=== PATIENT | female | born 1985 | race African-American/Black ===

== ENCOUNTER 2016-09-21 15:30 | Inpatient (IN) | payer OTHER ==
[2016-09-21 16:18] VITALS: BMI 27.4
[2016-09-21] MEDS ORDERED: DINOPROSTONE 10 MG VAGINAL SUPPOSITORY VG ONE (16:21)
[2016-09-21] MEDS ORDERED: BUTORPHANOL TARTRATE 1 MG/ML VIAL IVPUSH PRN (16:22)
[2016-09-21] MEDS ORDERED: PROMETHAZINE HCL 25 MG/1 ML VIAL IVPUSH ONE (16:22)
[2016-09-21] MEDS ORDERED: DEXTROSE 5%-LACTATED RINGERS 1,000 ML IV SCH (16:30)
--- NOTE | 2016-09-21 16:43 | HP ---
Past Medical History - Primary Care Physician PCP:: Yoseph Govea - Admission Chief Complaint: 41 weeks, for cervidil induction History of Present Illness: 31 yo f 6 [id number]. edc by anna 09/13/16 41.1 weeks, admitted for cervidil induction , no pain, no rom, cervidil risks degaussed, cx 1 cm 50 vx -2 mi, fhr cat1 History Source: Patient Limitations to Obtaining History: No Limitations - Past Medical History ...: 6 ...Para: 4 ...Term: 4 ...Induced : 1 ...EDC by Anna: 09/13/16 - Past Surgical History Hx Myomectomy: No Hx Transabdominal Cerclage: No - Smoking History Smoking history: Current every day smoker Have you smoked in the past 12 months: Yes Aproximately how many cigarettes per day: 6 - Alcohol/Substance Use Hx Alcohol Use: No History of Substance Use: reports: None - Social History Usual Living Arrangement: Yes: With Spouse History of Recent Travel: No Home Medications - Allergies Allergies/Adverse Reactions: Allergies Allergy/AdvReac Type Severity Reaction Status Date / Time No Known Allergies Allergy Verified 09/21/16 16:21 - Home Medications Home Medications: Ambulatory Orders Acetaminophen [Tylenol .Regular Strength -] 650 mg PO Q3H PRN #1 tablet Ibuprofen [Motrin -] 600 mg PO Q4H PRN #1 tablet 02/23/14 Tablet 1 tablet PO DAILY 09/21/16 Review of Systems - Review of Systems Constitutional: reports: No Symptoms Eyes: reports: No Symptoms HENT: reports: No Symptoms Neck: reports: No Symptoms Cardiovascular: reports: No Symptoms Respiratory: reports: No Symptoms Gastrointestinal: reports: No Symptoms Genitourinary: reports: No Symptoms Breasts: reports: No Symptoms Reported Musculoskeletal: reports: No Symptoms Integumentary: reports: No Symptoms Neurological: reports: No Symptoms Endocrine: reports: No Symptoms Hematology/Lymphatic: reports: No Symptoms Psychiatric: reports: No Symptoms Physical Exam - Maternity Vital Signs: Vital Signs Temperature 98.2 F 09/21/16 16:05 Pulse Rate 82 09/21/16 16:05 Respiratory Rate 18 09/21/16 16:05 Blood Pressure 124/74 09/21/16 16:05 O2 Sat by Pulse Oximetry (%) Constitutional: Yes: Well Nourished, No Distress, Calm Eyes: Yes: WNL, Conjunctiva Clear, EOM Intact HENT: Yes: WNL, Atraumatic, Normocephalic Neck: Yes: WNL, Supple, Trachea Midline Cardiovascular: Yes: WNL, Regular Rate and Rhythm Breast(s): Yes: WNL - Abdominal Exam/OB Fundal Height: 40 Number of Fetuses: Single Presentation: Vertex Intensity: Unaware Heart Rate Location: [facility] Category: I Accelerations: Uniform Decelerations: None - Vaginal Exam/OB Vaginal Bleediing: No Speculum Exam: No Dilatation (cm): 1 cm Amniotic Membrane Status: Intact Presentation: Vertex/Position Station: -2 - Physical Exam Musculoskeletal: Yes: WNL Edema: Yes Edema: LLE: Trace, RLE: Trace Deep Tendon Reflex Grade: Normal +2 Psychiatric: Yes: WNL Hemorrhage Risk Assessment - Risk Factors Medium Risk Factors: Yes: Greater than 4 previous births Risk Score: 1 Risk Level: Medium Risk Problem List - Problems (1) Post term at 41 weeks gestation Code(s): O48.0 - POST-TERM Z3A.41 - 41 WEEKS GESTATION OF Assessment/Plan plan admit for cervidil induction , rba discussed
[2016-09-21] MEDS ORDERED: ACETAMINOPHEN 325 MG TABLET (FP) PO PRN (16:46)
[2016-09-21 17:48] LABS: BASOPHIL 0.3 % (0-2.0); EOSINOPHIL 1.9 % (0-4.5); MCH 28.6 pg (25.7-33.7); MCHC 33.3 g/dl (32.0-36.0); MEAN CELL VOLUME 85.8 fl (80-96); MEAN PLT VOLUME 8.6 fl (7.5-11.1); NEUTROPHILS 63.1 % (42.8-82.8); PLATELET COUNT 268 K/MM3 (134-434); RDW 14.6 % (11.6-15.6); WHITE BLOOD COUNT 9.1 K/mm3 (4.0-10.0)
[2016-09-21 18:11] LABS: CALCIUM 8.8 mg/dL (8.5-10.1); CREATININE 0.4 mg/dL (0.55-1.02)
[2016-09-21 18:21] LABS: INR 1.02 (0.82-1.09); PROTHROMBIN TIME (PATIENT) 11.2 SEC (9.98-11.88)
[2016-09-21 18:24] LABS: ACTIVATED PTT 30.9 SECONDS (26.9-34.4)
--- NOTE | 2016-09-21 21:59 | PN ---
Progress Note (short form) - Note Progress Note: cv 3 cm, 70, vx -2 mi, fhr cat1, irregular contraction Problem List - Problems (1) Post term at 41 weeks gestation Code(s): O48.0 - POST-TERM Z3A.41 - 41 WEEKS GESTATION OF
[2016-09-22] MEDS ORDERED: D5W-LR W/ 20 UNITS OXYTOCIN 1,000 ML IV ONE (03:05)
[2016-09-22] MEDS ORDERED: BISACODYL 10 MG SUPP.RECT RC PRN (03:08)
[2016-09-22] MEDS ORDERED: METHYLERGONOVINE MALEATE 0.2 MG/1 ML AMP IM PRN (03:08)
[2016-09-22] MEDS ORDERED: BENZOCAINE 20% 57 GM BOTTLE TP PRN (03:08)
[2016-09-22] MEDS ORDERED: oxyCODONE HCL 5 MG TABLET PO PRN (03:08)
[2016-09-22] MEDS ORDERED: ACETAMINOPHEN 325 MG TABLET (FP) PO PRN (03:08)
[2016-09-22] MEDS ORDERED: WITCH HAZEL 50% (TUCKS) 40 PAD/JAR PAD TP PRN (03:08)
[2016-09-22] MEDS ORDERED: BENZOCAINE 28 GM HEMORRHOIDAL OINTMENT TP PRN (03:08)
[2016-09-22] MEDS ORDERED: D5W-LR W/ 20 UNITS OXYTOCIN 1,000 ML IV SCH (03:15)
[2016-09-22 03:30] LABS: ARTERIAL BLOOD GAS BASE EXCESS -2.3 meq/l (-2-2); ARTERIAL BLOOD GAS HCO3 24.5 meq/L (22-26); ARTERIAL BLOOD GAS pH 7.29 (7.35-7.45)
[2016-09-22 03:33] LABS: VENOUS BLOOD GAS HCO3 25.5 meq/L (19-25)
[2016-09-22 03:34] LABS: ART PUNCT SITE OTHER; ARTERIAL BLD GAS O2 SATURATION 64.7 % (90-98.9); LPM/O2% 21%; PT. ON O2? no; TYPE OF O2 room air; VENOUS PH 7.22 (7.32-7.42)
[2016-09-22 03:35] LABS: ARTERIAL BLOOD GAS PO2 31.1 mmHg (80-100)
[2016-09-22] MEDS: FERROUS SO4 325 MG TABLET (FP) PO SCH ×2 (09:17→21:24)
[2016-09-22] MEDS: PRENATAL VITAMINS W/ FOLIC ACID TABLET (FP) PO SCH (09:17)
[2016-09-23 07:12] LABS: BASOPHIL 0.4 % (0-2.0); MCH 28.5 pg (25.7-33.7); MCHC 33.1 g/dl (32.0-36.0); MEAN CELL VOLUME 86.1 fl (80-96); MEAN PLT VOLUME 8.4 fl (7.5-11.1); NEUTROPHILS 57.2 % (42.8-82.8); PLATELET COUNT 219 K/MM3 (134-434); RDW 14.7 % (11.6-15.6); WHITE BLOOD COUNT 10.6 K/mm3 (4.0-10.0)
[2016-09-23] MEDS: FERROUS SO4 325 MG TABLET (FP) PO SCH ×2 (10:11→21:42)
[2016-09-23] MEDS: IBUPROFEN 600 MG TABLET (FP) PO PRN ×2 (10:11→21:43)
[2016-09-23] MEDS: PRENATAL VITAMINS W/ FOLIC ACID TABLET (FP) PO SCH (10:11)
--- NOTE | 2016-09-23 10:26 | PN ---
Post Progress Note - Subjective Subjective: asymptomatic Post Day: 1 Type of Delivery: Vital Signs: Vital Signs Temperature 97.7 F 09/23/16 01:56 Pulse Rate 91 H 09/23/16 01:56 Respiratory Rate 18 09/23/16 01:56 Blood Pressure 112/59 09/23/16 01:56 O2 Sat by Pulse Oximetry (%) 100 09/22/16 04:00 Breast Exam: Yes: Soft. No: Engorged Uterus: Yes: Fundus Firm, Fundus below umbilicus Lochia: Yes: Rubra Lochia, amount: Moderate Extremities: Yes: Calves non-tender Perineum: Yes: Intact Activity: Ambulating - Labs Labs: CBC WBC 10.6 K/mm3 (4.0-10.0) H 09/23/16 05:20 RBC 3.84 M/mm3 (3.60-5.2) 09/23/16 05:20 Hgb 10.9 GM/dL (10.7-15.3) 09/23/16 05:20 Hct 33.0 % (32.4-45.2) 09/23/16 05:20 MCV 86.1 fl (80-96) 09/23/16 05:20 MCHC 33.1 g/dl (32.0-36.0) 09/23/16 05:20 RDW 14.7 % (11.6-15.6) 09/23/16 05:20 Plt Count 219 K/MM3 (134-434) 09/23/16 05:20 MPV 8.4 fl (7.5-11.1) 09/23/16 05:20 Neutrophils % 57.2 % (42.8-82.8) 09/23/16 05:20 Lymphocytes % 33.5 % (8-40) D 09/23/16 05:20 Monocytes % 6.9 % (3.8-10.2) 09/23/16 05:20 Eosinophils % 2.0 % (0-4.5) 09/23/16 05:20 Basophils % 0.4 % (0-2.0) 09/23/16 05:20 Assessment/Plan stable. plan discharge tomorrow.
[2016-09-23 20:09] VITALS: PULSE 89
[2016-09-23] MEDS ORDERED: SENNOSIDES/DOCUSATE COMBO (SENNA PLUS) TABLET (UD) PO PRN (22:00)
[2016-09-24 08:53] VITALS: BP 136/76; TEMP 99.4
--- NOTE | 2016-09-24 09:29 | PN ---
Post Progress Note - Subjective Subjective: asymptomatic Post Day: 2 Type of Delivery: Vital Signs: Vital Signs Temperature 99.4 F 09/24/16 08:51 Pulse Rate 89 09/24/16 08:51 Respiratory Rate 20 09/24/16 08:51 Blood Pressure 136/76 09/24/16 08:51 O2 Sat by Pulse Oximetry (%) 100 09/22/16 04:00 Breast Exam: Yes: Soft, Other (not BF ). No: Engorged Uterus: Yes: Fundus Firm, Fundus below umbilicus, Non-tender Lochia: Yes: Rubra Lochia, amount: Moderate Extremities: Yes: Calves non-tender Perineum: Yes: Intact Activity: Ambulating - Labs Labs: CBC WBC 10.6 K/mm3 (4.0-10.0) H 09/23/16 05:20 RBC 3.84 M/mm3 (3.60-5.2) 09/23/16 05:20 Hgb 10.9 GM/dL (10.7-15.3) 09/23/16 05:20 Hct 33.0 % (32.4-45.2) 09/23/16 05:20 MCV 86.1 fl (80-96) 09/23/16 05:20 MCHC 33.1 g/dl (32.0-36.0) 09/23/16 05:20 RDW 14.7 % (11.6-15.6) 09/23/16 05:20 Plt Count 219 K/MM3 (134-434) 09/23/16 05:20 MPV 8.4 fl (7.5-11.1) 09/23/16 05:20 Neutrophils % 57.2 % (42.8-82.8) 09/23/16 05:20 Lymphocytes % 33.5 % (8-40) D 09/23/16 05:20 Monocytes % 6.9 % (3.8-10.2) 09/23/16 05:20 Eosinophils % 2.0 % (0-4.5) 09/23/16 05:20 Basophils % 0.4 % (0-2.0) 09/23/16 05:20 Assessment/Plan stable. discharge today
[2016-09-24] MEDS: FERROUS SO4 325 MG TABLET (FP) PO SCH (10:08)
[2016-09-24] MEDS: PRENATAL VITAMINS W/ FOLIC ACID TABLET (FP) PO SCH (10:08)
[2016-09-24] MEDS: IBUPROFEN 600 MG TABLET (FP) PO PRN (11:45)
--- NOTE | 2016-09-24 13:07 | DS ---
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 Vital Signs: Vital Signs Temperature 99.4 F 09/24/16 08:51 Pulse Rate 89 09/24/16 08:51 Respiratory Rate 20 09/24/16 08:51 Blood Pressure 136/76 09/24/16 08:51 O2 Sat by Pulse Oximetry (%) 100 09/22/16 04:00 Constitutional: Yes: Well Nourished, No Distress, Calm Eyes: Yes: WNL, Conjunctiva Clear, EOM Intact HENT: Yes: WNL, Atraumatic, Normocephalic Neck: Yes: WNL, Supple, Trachea Midline Cardiovascular: Yes: WNL, Regular Rate and Rhythm Respiratory: Yes: WNL, Regular, CTA Bilaterally Gastrointestinal: Yes: WNL ...Rectal Exam: Yes: WNL Renal/: Yes: WNL External Genitalia: Yes: Normal Vaginal Exam: Yes: Normal ....Post : Yes: Uterus firm, Uterus non-tender, Slight lochia rubra Breast(s): Yes: WNL Musculoskeletal: Yes: WNL Extremities: Yes: WNL Edema: LLE: Trace, RLE: Trace Integumentary: Yes: WNL Neurological: Yes: WNL, Alert, Oriented ...Motor Strength: WNL Psychiatric: Yes: WNL, Alert, Oriented Labs: CBC, BMP 09/23/16 05:20 09/21/16 16:45 Delivery - Delivery Vaginal Delivery: Spontaneous Type of Anesthesia: None Episiotomy/Laceration: None EBL (cc): 300 Delivery, Single - Stages of Labor Date 1st Stage Initiatied: 09/21/16 Time 1st Stage Initiated: 21:40 Date 2nd Stage Initiated: 09/22/16 Time 2nd Stage Initiated: 02:45 Date of Delivery: 09/22/16 Time of Delivery: 03:00 Time Placenta Delivered: 03:05 Placenta: Yes: Spontaneous - Condition of Infant Trial Lawyer/Scrap Charger Present: No Infant Gender: Male Weight: 6 lb 10 oz Position: Left, OA Total Hours ROM (Hrs/Mins): 16 MINS - 1 Minute Total Score: 9 5 Minutes Total Score: 9 - [place] Feeding Plan Initial Plan: Elected not to breastfeed exclusively throughout hospitalization Discharge Summary Reason For Visit: INDUCTION OF LABOR Procedures: Principal: Condition: Stable - Instructions Diet, Activity, Other Instructions: Post Instructions DIET: Continue good diet high in protein, calcium, and iron rich foods. Drink at least eight (8) glasses of water daily in addition to other fluids. ct Regular diet MEDICATIONS: Continue vitamins and iron as previously directed. Motrin and Tylenol may be taken for minor discomfort. ACTIVITY: Mild to moderate exercise may be started in two (2) weeks. Take frequent rest periods. Resume normal activity after six (6) week check up. WOUND CARE OF OPERATIVE SITE: Continue use of perineal bottle until vaginal discharge stops. Keep area clean. Shower daily. Keep abdominal wound dry. Report any drainage or redness to physician. Tub baths, tampons and douches are not permitted for [address] Breast feeding & or Bottle feeding BREAST CARE: (For those that are not breast feeding): If engorgement occurs: Wear tight fitting bra. Take Tylenol or Motrin for pain. Apply cold packs (ice in bags to each breast ) FAMILY PLANNING: There are many control alternatives to pursue and they should be discussed at your first office visit. You may resume sexual activity after your six (6) week check up. (Remember, breast feeding is not a contraceptive) NEXT PHYSICIAN APPOINTMENT: Be certain to call for a six (6) week appointment, unless otherwise directed. to see Dr Govea [facility] or got to Emergency Dept if you have any of the following: Heavy vaginal bleeding Painful urination Leg pain Unusual odor noted to vaginal bleeding High fever Red streaking noted on breast Referrals: Chata Chaves MD [Staff Physician] - Yoseph Govea MD [Staff Physician] - Disposition: HOME - Home Medications Comprehensive Discharge Medication List: Ambulatory Orders Acetaminophen [Tylenol .Regular Strength -] 650 mg PO Q3H PRN #1 tablet Tablet 1 tablet PO DAILY 09/21/16 Acetaminophen [Tylenol .Regular Strength -] 650 mg PO Q3H PRN #0 tablet Acetaminophen [Tylenol .Regular Strength -] 650 mg PO Q3H PRN #0 tablet Ferrous Sulfate [Feosol] 325 mg PO BID 09/23/16 Ibuprofen [Motrin -] 200 mg PO Q4H PRN #0 tablet 09/23/16 Ibuprofen [Motrin -] 600 mg PO Q4H PRN #1 tablet 09/23/16 Vitamins (Sjr) - 1 tab PO DAILY tablet 09/23/16
== END 2016-09-24 12:55 | disposition home or self-care (01) | DRG 560 ==
LOC: JLDR 15:30 → J3W 09-22 04:31
PROVIDERS: ADMIT Obstetrics & Gynecology; ATTEND Obstetrics & Gynecology
PROC: 3E0P7GC Introduction of Other Therapeutic Substance into Female Reproductive, Via Natural or Artificial Opening (ICD-10-PCS; 2016-09-21)
PROC: 10E0XZZ Delivery of Products of Conception, External Approach (ICD-10-PCS; principal; 2016-09-22)
DX: O48.0 Post-term pregnancy (principal); O99.334 Smoking (tobacco) complicating childbirth; F17.210 Nicotine dependence, cigarettes, uncomplicated; Z3A.41 41 weeks gestation of pregnancy; Z37.0 Single live birth
CPT/HCPCS: 36415; 36600; 59409; 80048; 82803; 85025; 85610; 85730; 86593; 86850; 86900; 86901

== ENCOUNTER 2018-08-24 12:14 | Emergency (ER) | payer OTHER ==
[2018-08-24 12:20] VITALS: BP 141/81; PULSE 81; TEMP 98; BMI 26.2
[2018-08-24] MEDS ORDERED: FLUORESCEIN NA 1 EA STRIP OD ONE (12:35)
[2018-08-24] MEDS ORDERED: TETRACAINE 0.5% HCL 0.6ML DROPPER.BOTTLE OD ONE (12:35)
[2018-08-24] MEDS ORDERED: TETRACAINE 0.5% OPHTH SOLN 2 ML BOTTLE ONE (12:37)
[2018-08-24] MEDS ORDERED: FLUORESCEIN NA 1 EA STRIP ONE (12:37)
--- NOTE | 2018-08-24 12:48 | PDOC ---
History of Present Illness - General Chief Complaint: Eye Problem Stated Complaint: PINK EYE Time Seen by Provider: 08/24/18 12:29 History Source: Patient Exam Limitations: No Limitations - History of Present Illness Initial Comments: 08/24/18 12:41 HISTORY OF PRESENT ILLNESS: 33-year-old woman denies medical history presents emergency department for evaluation of right I erythema and thick white discharge starting this morning since awakening. Patient reports having a foreign body is feeling in her eye which she describes as a "Ritu/gritty feeling." Patient denies contact lens use when he for corrective lenses. No recent travel or sick contacts. PAST MEDICAL HISTORY: Denies past medical history SURGICAL HISTORY: Denies ALLERGIES: No known drug allergies REVIEW OF SYSTEMS General/Constitutional: Denies fever or chills. Denies weakness, weight change. HEENT: see HPI Cardiovascular: Denies chest pain or shortness of breath. Respiratory: Denies cough, wheezing, or hemoptysis. Gastrointestinal: Denies nausea, vomiting, diarrhea or constipation. Denies rectal bleeding. Genitourinary: Denies dysuria, frequency, or change in urination. Musculoskeletal: Denies joint or muscle swelling or pain. Denies neck or back pain. Skin and breasts: Denies rash or easy bruising. Neurologic: Denies headache, vertigo, loss of consciousness, or loss of sensation. Psychiatric: Denies depression or anxiety. Endocrine: Denies increased thirst. Denies abnormal weight change. Hematologic/Lymphatic: Denies anemia, easy bleeding, or history of blood clots. Allergic/Immunologic: Denies hives or skin allergy. Denies latex allergy. PHYSICAL EXAM General Appearance: Well-appearing, appropriately dressed. No apparent distress , no intoxication. HEENT: EOMI, PERRLA. Conjunctiva erythematous in the right I with scleral injection extending to the limbus. Thick white discharge present in the right eye. No abnormal fluorescein uptake noted. Red reflex within normal limits. Respiratory/Chest: Lungs CTAB. No shortness of breath, chest tenderness, respiratory distress, accessory muscle use. No crackles, rales, rhonchi, stridor , wheezing, dullness Cardiovascular: RRR. S1, S2. No JVD, murmur, bradycardia, tachycardia. Neurologic: plater hot dip II-XII intact. Fully oriented, alert. Appropriate mood/affect. Motor strength 5/5. No appreciable EOM palsy, facial droop or sensory deficit. Past History - Past Medical History Allergies/Adverse Reactions: Allergies Allergy/AdvReac Type Severity Reaction Status Date / Time No Known Allergies Allergy Verified 08/24/18 12:18 Home Medications: Ambulatory Orders Polymyxin B Sulfate/Tmp [Polytrim Opthalmic Solution -] 2 drop OD Q3H #1 bottle 08/24/18 Anemia: No Asthma: No Cancer: No Cardiac Disorders: No CVA: No COPD: No CHF: No Dementia: No Diabetes: No GI Disorders: No Disorders: No HTN: No Hypercholesterolemia: No Liver Disease: No Seizures: No Thyroid Disease: No - Suicide/Smoking/Psychosocial Hx Smoking Status: No Smoking History: Never smoked Have you smoked in the past 12 months: No Number of Cigarettes Smoked Daily: 6 Information on smoking cessation initiated: No 'Breaking Loose' booklet given: 11/02/16 Hx Alcohol Use: No Drug/Substance Use Hx: No Substance Use Type: None Hx Substance Use Treatment: No *Physical Exam - Vital Signs Last Vital Signs Temp Pulse Resp BP Pulse Ox 98.0 F 81 91 H 141/81 100 08/24/18 12:18 08/24/18 12:18 08/24/18 12:18 08/24/18 12:18 08/24/18 12:18 Moderate Sedation - Procedure Monitoring Vital Signs: Procedure Monitoring Vital Signs Temperature 98.0 F 08/24/18 12:18 Pulse Rate 81 08/24/18 12:18 Respiratory Rate 91 H 08/24/18 12:18 Blood Pressure 141/81 08/24/18 12:18 O2 Sat by Pulse Oximetry (%) 100 08/24/18 12:18 ED Treatment Course - Medications Given in the ED: ED Medications Discontinued Medications Generic Name Dose Route Start Last Admin Trade Name Freq PRN Reason Stop Dose Admin Fluorescein Sodium 1 ea 08/24/18 12:35 08/24/18 12:37 Fluorets - OD 08/24/18 12:36 1 ea ONCE ONE Administration Tetracaine HCl 1 drop 08/24/18 12:35 08/24/18 12:37 Tetravisc 0.5% Eye Drops - OD 08/24/18 12:36 1 drop ONCE ONE Administration Medical Decision Making - Medical Decision Making 08/24/18 12:44 A/P: 33-year-old woman with right eye conjunctivitis EYE EXAMINATION: Visual acuity: 20/50 in the left eye, 20/50 in the right eye, near, uncorrected The lid and lashes are normal. Extraocular movements are intact. The conjunctiva is erythematous with scleral injection extending to the limbus. Thick white discharge from right eye. The corneal surface is normal post tetracaine and fluorescein. There is no corneal abrasion or foreign body. There is no abnormal fluorescein uptake. The pupils are equal, round and reactive to light. The fundus shows normal vessels and normal discs. Discharge home with prescription for Polytrim eyedrops 2 drops every 3 hours for the next 7 days. *DC/Admit/Observation/Transfer Diagnosis at time of Disposition: Acute conjunctivitis of right eye Qualifiers: Acute conjunctivitis type: bacterial Qualified Code(s): H10.31 - Unspecified acute conjunctivitis, right eye - Discharge Dispostion Disposition: HOME Condition at time of disposition: Stable Decision to Admit order: No - Prescriptions Prescriptions: Polymyxin B Sulfate/Tmp [Polytrim Opthalmic Solution -] 2 drop OD Q3H #1 bottle - Referrals Referrals: Daniel Feng MD [Primary Care Provider] - - Patient Instructions Additional Instructions: Rest, avoid rubbing eyes Wash hands frequently as this is very contagious Wash hands, use eye drops as directed, wash hands after use Do not share eye ointment with other person to may become infected as this will infect them Polytrim drops 1-2 drops to affected eye 6 times a day for 7 days Avoid contact with others until redness and discharge is gone from eyes. Followup with ophthalmology or private physician as needed - Post Discharge Activity Forms/Work/School Notes: Back to Work
== END 2018-08-24 12:46 | disposition home or self-care (01) ==
LOC: JERFT 12:14
PROC: 4A07X0Z Measurement of Visual Acuity, External Approach (ICD-10-PCS; principal; 2018-08-24)
DX: H10.31 Unspecified acute conjunctivitis, right eye (principal)
CPT/HCPCS: 99173; 99281-25

== ENCOUNTER 2019-12-29 02:30 | Inpatient (IN) | payer OTHER ==
[2019-12-29] MEDS ORDERED: AMPICILLIN SODIUM 2 GM VIAL ONE ×2 (03:33→08:43)
[2019-12-29] MEDS ORDERED: AMPICILLIN - 2 GM in SODIUM CHLORIDE 100 ML IVPB ONE (04:15)
[2019-12-29 05:03] LABS: BASO % 0.7 % (0-2.0); EOS % 1.3 % (0-4.5); HEMATOCRIT 33.9 % (32.4-45.2); HEMOGLOBIN 11.1 GM/dL (10.7-15.3); LYMPH % 17.7 % (8-40); MCH 28.5 pg (25.7-33.7); MCHC 32.7 g/dl (32.0-36.0); MEAN CELL VOLUME 87.3 fl (80-96); MEAN PLT VOLUME 9.6 fl (7.5-11.1); MONO % 5.8 % (3.8-10.2); NEUT % 74.5 % (42.8-82.8); PLATELET COUNT 245 K/MM3 (134-434); RBC 3.89 M/mm3 (3.60-5.2); RDW 14.3 % (11.6-15.6); WHITE BLOOD COUNT 14.9 K/mm3 (4.0-10.0)
[2019-12-29 05:10] LABS: PROTHROMBIN TIME (PATIENT) 11.8 SEC (9.7-13.0)
[2019-12-29 05:13] LABS: ACTIVATED PTT 29.8 SECONDS (25.2-36.5)
[2019-12-29] MEDS ORDERED: BUTORPHANOL TARTRATE 1 MG/ML VIAL IVPB ONE (05:15)
[2019-12-29] MEDS ORDERED: BUTORPHANOL TARTRATE 1 MG/ML VIAL ONE ×4 (05:16→11:05)
[2019-12-29] MEDS ORDERED: PROMETHAZINE HCL 25 MG/1 ML VIAL ONE ×2 (05:17→11:05)
[2019-12-29 05:24] LABS: BLOOD UREA NITROGEN 15.2 mg/dL (7-18); CALCIUM 8.8 mg/dL (8.5-10.1); CREATININE 0.5 mg/dL (0.55-1.3); POTASSIUM 4.2 mmol/L (3.5-5.1)
[2019-12-29] MEDS ORDERED: PROMETHAZINE HCL 25 MG/1 ML VIAL IVPB ONE (05:30)
[2019-12-29 05:34] VITALS: BMI 28.8
[2019-12-29] MEDS: DEXTROSE 5%-LACTATED RINGERS 1,000 ML IV SCH (05:36)
[2019-12-29 06:02] LABS: METHADONE, UR NEGATIVE ng/ml (CUTOFF=300); OPIATES, URI NEGATIVE ng/ml (CUTOFF=300); PHENCYCLIDINE,URINE NEGATIVE ng/ml (CUTOFF=25); URINE BARBITURATES NEGATIVE ng/ml (CUTOFF=200); URINE BENZODIAZEPINES NEGATIVE ng/ml (CUTOFF=200)
[2019-12-29 06:07] LABS: COCAINE, UR NEGATIVE ng/ml (CUTOFF=300); URINE AMPHETAMINES NEGATIVE ng/ml (CUTOFF=500)
--- NOTE | 2019-12-29 06:22 | HP ---
Past Medical History - Primary Care Physician PCP:: Yoseph Govea - Admission Chief Complaint: 39 weeks , grandmultiparous, labor History of Present Illness: 34 yo f 2 3 5 39 weeks in labor , cx 7 cm 100 vx -2 mi ,bulging, fhr cat 1, GBS positive , late to care , AMA History Source: Patient Limitations to Obtaining History: No Limitations - Past Medical History ...: 9 ...Para: 5 ...Term: 5 ...: 0 ...Spon : 0 ...Induced : 3 ...Living Children: 5 ...Multiple Gestation: 0 ...LMP: 03/31/19 ... Weeks Gestation by Dates: 38.6 ...EDC by Dates: 01/06/20 ...EDC by Sono: 01/05/20 - Past Surgical History Hx Myomectomy: No Hx Transabdominal Cerclage: No - Smoking History Smoking history: Never smoked Have you smoked in the past 12 months: No Aproximately how many cigarettes per day: 6 - Alcohol/Substance Use Hx Alcohol Use: No History of Substance Use: reports: None - Social History History of Recent Travel: No Home Medications - Allergies Allergies/Adverse Reactions: Allergies Allergy/AdvReac Type Severity Reaction Status Date / Time No Known Allergies Allergy Verified 08/24/18 12:18 - Home Medications Home Medications: Ambulatory Orders Ferrous Sulfate [Iron] 1 tab PO DAILY 12/29/19 Pnv 29-1 Tablet 1 tab PO DAILY 12/29/19 Review of Systems - Review of Systems Constitutional: reports: No Symptoms Eyes: reports: No Symptoms HENT: reports: No Symptoms Neck: reports: No Symptoms Cardiovascular: reports: No Symptoms Respiratory: reports: No Symptoms Gastrointestinal: reports: No Symptoms Genitourinary: reports: No Symptoms Breasts: reports: No Symptoms Reported Musculoskeletal: reports: No Symptoms Integumentary: reports: No Symptoms Neurological: reports: No Symptoms Endocrine: reports: No Symptoms Hematology/Lymphatic: reports: No Symptoms Psychiatric: reports: No Symptoms Physical Exam - Maternity Vital Signs: Vital Signs Temperature 98.0 F 12/29/19 06:00 Pulse Rate 105 H 12/29/19 06:00 Respiratory Rate 20 12/29/19 06:00 Blood Pressure 125/77 12/29/19 06:00 O2 Sat by Pulse Oximetry (%) Constitutional: Yes: Well Nourished, No Distress, Calm Eyes: Yes: WNL, Conjunctiva Clear, EOM Intact HENT: Yes: WNL, Atraumatic, Normocephalic Neck: Yes: WNL, Supple, Trachea Midline Cardiovascular: Yes: WNL, Regular Rate and Rhythm Breast(s): Yes: WNL - Abdominal Exam/OB Fundal Height: 38 Number of Fetuses: Single Presentation: Vertex Contractions: Yes Regularity: Regular Intensity: Mod/Strong Monitor Mode: External Heart Rate Location: [facility] Category: I Accelerations: Non-Uniform Decelerations: None - Vaginal Exam/OB Vaginal Bleeding: No Speculum Exam: No Dilatation (cm): 7 cm Effacement (%): 100 Amniotic Membrane Status: Bulging Presentation: Vertex/Position Station: -2 - Physical Exam Musculoskeletal: Yes: WNL Extremities: Yes: WNL Edema: LLE: Trace, RLE: Trace Deep Tendon Reflex Grade: Normal +2 ...Motor Strength: WNL Psychiatric: Yes: WNL - Labs Lab Results: CBC, BMP 12/29/19 04:10 12/29/19 04:10 Hemorrhage Risk Assessment - Risk Factors Medium Risk Factors: Yes: Multiple gestation Risk Score: 1 Risk Level: Medium Risk Problem List - Problems (1) with 39 completed weeks gestation Code(s): Z3A.39 - 39 WEEKS GESTATION OF (2) Grand multipara in labor Code(s): O80 - ENCOUNTER FOR FULL-TERM UNCOMPLICATED DELIVERY Qualifiers: Trimester: third trimester Qualified Code(s): O09.43 - Supervision of with grand multiparity, third trimester (3) AMA (advanced maternal age) multigravida 35+ Code(s): O09.529 - SUPERVISION OF ELDERLY MULTIGRAVIDA, UNSPECIFIED TRIMESTER Qualifiers: Trimester: third trimester Qualified Code(s): O09.523 - Supervision of elderly multigravida, third trimester (4) Late care Code(s): O09.30 - SUPRVSN OF PREG W INSUFFICIENT ANTENAT CARE, UNSP TRIMESTER Assessment/Plan plan admit fhm GBS positive , iv amp. pain management observe for PP hemorrhage
--- NOTE | 2019-12-29 06:26 | PN ---
Progress Note (short form) - Note Progress Note: cx 7 cm 100 vx -2 bulging membrane , AROM, clear , fhr cat 1 Problem List - Problems (1) with 39 completed weeks gestation Code(s): Z3A.39 - 39 WEEKS GESTATION OF (2) Grand multipara in labor Code(s): O80 - ENCOUNTER FOR FULL-TERM UNCOMPLICATED DELIVERY Qualifiers: Trimester: third trimester Qualified Code(s): O09.43 - Supervision of with grand multiparity, third trimester (3) AMA (advanced maternal age) multigravida 35+ Code(s): O09.529 - SUPERVISION OF ELDERLY MULTIGRAVIDA, UNSPECIFIED TRIMESTER Qualifiers: Trimester: third trimester Qualified Code(s): O09.523 - Supervision of elderly multigravida, third trimester (4) Late care Code(s): O09.30 - SUPRVSN OF PREG W INSUFFICIENT ANTENAT CARE, UNSP TRIMESTER
--- NOTE | 2019-12-29 07:38 | PN ---
Progress Note (short form) - Note Progress Note: cx 7 cm 80 vx -2 fhr cat 1, moving ubable to monitor fh correctly , scalp electrode applied. LT side Problem List - Problems (1) with 39 completed weeks gestation Code(s): Z3A.39 - 39 WEEKS GESTATION OF (2) Grand multipara in labor Code(s): O80 - ENCOUNTER FOR FULL-TERM UNCOMPLICATED DELIVERY Qualifiers: Trimester: third trimester Qualified Code(s): O09.43 - Supervision of with grand multiparity, third trimester (3) AMA (advanced maternal age) multigravida 35+ Code(s): O09.529 - SUPERVISION OF ELDERLY MULTIGRAVIDA, UNSPECIFIED TRIMESTER Qualifiers: Trimester: third trimester Qualified Code(s): O09.523 - Supervision of elderly multigravida, third trimester (4) Late care Code(s): O09.30 - SUPRVSN OF PREG W INSUFFICIENT ANTENAT CARE, UNSP TRIMESTER
[2019-12-29] MEDS: AMPICILLIN - 1 GM in SODIUM CHLORIDE 100 ML IVPB SCH ×3 (08:15→17:26)
[2019-12-29] MEDS ORDERED: OXYTOCIN 30 UNITS in 0.9% NS 30 UNIT/500 ML INFUS.BAG IVPB ONE (08:43)
--- NOTE | 2019-12-29 08:49 | PN ---
Progress Note (short form) - Note Progress Note: cx 7 cm 80 vx -2, op , mr, clear , fhr cat 1 , occasional mild variable . irregular contraction . LT side , advised pitocin, risks and benefit discussed Problem List - Problems (1) with 39 completed weeks gestation Code(s): Z3A.39 - 39 WEEKS GESTATION OF (2) Grand multipara in labor Code(s): O80 - ENCOUNTER FOR FULL-TERM UNCOMPLICATED DELIVERY Qualifiers: Trimester: third trimester Qualified Code(s): O09.43 - Supervision of with grand multiparity, third trimester (3) AMA (advanced maternal age) multigravida 35+ Code(s): O09.529 - SUPERVISION OF ELDERLY MULTIGRAVIDA, UNSPECIFIED TRIMESTER Qualifiers: Trimester: third trimester Qualified Code(s): O09.523 - Supervision of elderly multigravida, third trimester (4) Late care Code(s): O09.30 - SUPRVSN OF PREG W INSUFFICIENT ANTENAT CARE, UNSP TRIMESTER
[2019-12-29] MEDS ORDERED: OXYTOCIN 20 UNITS in 0.9% NS 20 UNIT/1,000 ML INFUS.BAG IV ONE (08:50)
[2019-12-29] MEDS ORDERED: OXYTOCIN 30 UNITS in 0.9% NS 30 UNIT/500 ML INFUS.BAG IVPB SCH (09:00)
--- NOTE | 2019-12-29 12:35 | PN ---
Progress Note, Labor Vaginal Exam #1 Labor Exam Date: 12/29/19 Labor Exam Time: 12:30 Heart Rate (range): Cat II Dilatation: 5 Effacement (%): 100 Amniotic Membrane Status: Ruptured Presentation: Vertex/Position Station: -3 Remarks: Assuming care for this patient. Cat II tracing 2/2 recurrent variable decelerations, good variability. + accels. Patient has had Stadol x 2 from previous provider SVE not 7cm. 5/100/-3; therefore unclear cervical progress since admission. Epidural prn, no further stadol to be given IUPC placed, will start amnioinfusion for decels Discussed poor progress, abnormal tracing and potential for PLTCS Will closely monitor. Ludmila Pavon MD
[2019-12-29] MEDS ORDERED: MORPHINE SULFATE 2 MG/ML VIAL IVPUSH ONE (14:00)
--- NOTE | 2019-12-29 14:27 | PN ---
Delivery - Delivery Vaginal Delivery: Spontaneous Type of Anesthesia: None Episiotomy/Laceration: None EBL (cc): 600 Delivery, Single - Stages of Labor Date 1st Stage Initiatied: 12/29/19 Time 1st Stage Initiated: 04:00 Date 2nd Stage Initiated: 12/29/19 Time 2nd Stage Initiated: 12:50 Date of Delivery: 12/29/19 Time of Delivery: 12:55 Placenta: Yes: Manual Removal, Curettage - Condition of Infant Information Technology Security Manager/Supervisor Fusing Room Present: No Gender: Female Position: OA - 1 Minute Total Score: 9 5 Minutes Total Score: 9 - [place] Feeding Plan Initial Plan: Elected not to breastfeed exclusively throughout hospitalization Remarks - Remarks Remarks: of VFI from JONAH position over intact perineum. No anesthesia. 39 week . Spontaneous delivery of anterior shoulder and body. Cord clamped and cut. Infant placed on mother's abdomen. Apgars 8/9. Weight 6.4lbs. IV access lost, patient given IM pitocin. Attempted delivery of placenta, but cord evulsed, placenta still fundal on exam. Given pitocin, an hour later, patient expressed over 400cc of clot spontaneously, placenta still seen fundally and with small portion in YULI. Bedside ultrasound guided attempted unsuccessful secondary to patient discomfort, only small membranes removed. Discussed need for emergency D&C for retained placenta in light of heavy bleeding. Anesthesia notified. Proceed to OR. Christiane Pavon MD
[2019-12-29] MEDS ORDERED: PROPOFOL 20 ML ONE (14:33)
[2019-12-29] MEDS ORDERED: SUCCINYLCHOLINE CHLORIDE 200 MG/10 ML SYRINGE ONE (14:33)
[2019-12-29] MEDS ORDERED: DEXAMETHASONE SOD PHOSPHATE 4 MG/1 ML VIAL ONE (14:53)
[2019-12-29] MEDS ORDERED: ACETAMINOPHEN 325 MG TABLET (FP) PO PRN (15:14)
[2019-12-29] MEDS ORDERED: BISACODYL 10 MG SUPP.RECT RC PRN (15:14)
[2019-12-29] MEDS ORDERED: WITCH HAZEL 50% (TUCKS) 40 PAD/JAR PAD TP PRN (15:14)
[2019-12-29] MEDS ORDERED: BENZOCAINE 20% 57 GM BOTTLE TP PRN (15:14)
[2019-12-29] MEDS ORDERED: BENZOCAINE 28 GM HEMORRHOIDAL OINTMENT TP PRN (15:14)
--- NOTE | 2019-12-29 15:25 | OP ---
Operative Note - Note: Operative Date: 12/29/19 Pre-Operative Diagnosis: Retained Placenta Operation: Dilation and Curretage Findings: Retained Placenta Post-Operative Diagnosis: Same as Pre-op Surgeon: Christiane Pavon Assayer: Jairo Lance Anesthesia: General Estimated Blood Loss (mls): 100 (600cc clear urine prior to entry to OR) Operative Report Dictated: Yes
[2019-12-29] MEDS ORDERED: METHYLERGONOVINE MALEATE 0.2 MG/1 ML AMP IM ONE (16:00)
[2019-12-29] MEDS ORDERED: DOXYCYCLINE HYCLATE 100 MG CAPSULE PO ONE (17:00)
[2019-12-29] MEDS ORDERED: METHYLERGONOVINE MALEATE 0.2 MG TABLET (FP) PO SCH (20:00)
[2019-12-29] MEDS: OXYTOCIN 20 UNITS in 0.9% NS 20 UNIT/1,000 ML INFUS.BAG IV SCH (20:32)
[2019-12-29] MEDS: METHYLERGONOVINE MALEATE 0.2 MG TABLET (FP) PO SCH (20:32)
[2019-12-29 20:51] LABS: BASO % 0.1 % (0-2.0); HEMATOCRIT 28.2 % (32.4-45.2); HEMOGLOBIN 8.9 GM/dL (10.7-15.3); LYMPH % 4.7 % (8-40); MCH 28.4 pg (25.7-33.7); MCHC 31.7 g/dl (32.0-36.0); MEAN CELL VOLUME 89.7 fl (80-96); MEAN PLT VOLUME 9.2 fl (7.5-11.1); MONO % 2.4 % (3.8-10.2); NEUT % 92.8 % (42.8-82.8); PLATELET COUNT 249 K/MM3 (134-434); RBC 3.14 M/mm3 (3.60-5.2); RDW 14.6 % (11.6-15.6); WHITE BLOOD COUNT 28.3 K/mm3 (4.0-10.0)
[2019-12-29 21:47] LABS: PLATELET ESTIMATE ADEQUATE
[2019-12-30] MEDS: METHYLERGONOVINE MALEATE 0.2 MG TABLET (FP) PO SCH ×4 (00:10→12:10)
--- NOTE | 2019-12-30 06:47 | PN ---
Post Progress Note - Subjective Subjective: Ambulating, breast feeding, tolerating PO, lochia decreased, voiding Post Day: 1 Type of Delivery: Vital Signs: Vital Signs Temperature 98.4 F 12/30/19 06:00 Pulse Rate 99 H 12/30/19 06:00 Respiratory Rate 18 12/30/19 06:00 Blood Pressure 118/67 12/30/19 06:00 O2 Sat by Pulse Oximetry (%) 97 12/29/19 16:25 Breast Exam: Yes: Other Uterus: Yes: Fundus Firm Abdomen/GI: Yes: Abdomen soft Lochia, amount: Moderate Extremities: Yes: Calves non-tender Perineum: Yes: Intact Activity: Ambulating - Labs Labs: CBC WBC 28.3 K/mm3 (4.0-10.0) H 12/29/19 20:00 RBC 3.14 M/mm3 (3.60-5.2) L 12/29/19 20:00 Hgb 8.9 GM/dL (10.7-15.3) L 12/29/19 20:00 Hct 28.2 % (32.4-45.2) L D 12/29/19 20:00 MCV 89.7 fl (80-96) 12/29/19 20:00 MCH 28.4 pg (25.7-33.7) 12/29/19 20:00 MCHC 31.7 g/dl (32.0-36.0) L 12/29/19 20:00 RDW 14.6 % (11.6-15.6) 12/29/19 20:00 Plt Count 249 K/MM3 (134-434) 12/29/19 20:00 MPV 9.2 fl (7.5-11.1) 12/29/19 20:00 Absolute Neuts (auto) 26.3 K/mm3 (1.5-8.0) H 12/29/19 20:00 Neutrophils % 92.8 % (42.8-82.8) H D 12/29/19 20:00 Neutrophils % (Manual) 81.0 % (42.8-82.8) 12/29/19 20:00 Band Neutrophils % 15.0 % 12/29/19 20:00 Lymphocytes % 4.7 % (8-40) L D 12/29/19 20:00 Lymphocytes % (Manual) 3.0 % (8-40) L 12/29/19 20:00 Monocytes % 2.4 % (3.8-10.2) L 12/29/19 20:00 Monocytes % (Manual) 0 % (3.8-10.2) L 12/29/19 20:00 Eosinophils % 0.0 % (0-4.5) D 12/29/19 20:00 Eosinophils % (Manual) 0.0 % (0-4.5) 12/29/19 20:00 Basophils % 0.1 % (0-2.0) 12/29/19 20:00 Basophils % (Manual) 0.0 % (0-2.0) 12/29/19 20:00 Myelocytes % (Man) 1 % (0-2) 12/29/19 20:00 Nucleated RBC % 0 % (0-0) 12/29/19 20:00 Platelet Estimate Adequate 12/29/19 20:00 Assessment/Plan PPD # 1 S/P vaginal delivered complicated by retained placenta requiring surgical/manual removal -F/U AM labs -Continue PP care -Continue prophylactic methergine -D/C home tomorrow
[2019-12-30 08:28] LABS: BASO % 0.2 % (0-2.0); EOS % 0.5 % (0-4.5); HEMATOCRIT 25.4 % (32.4-45.2); HEMOGLOBIN 8.1 GM/dL (10.7-15.3); LYMPH % 12.8 % (8-40); MCH 28.5 pg (25.7-33.7); MCHC 31.9 g/dl (32.0-36.0); MEAN CELL VOLUME 89.2 fl (80-96); MEAN PLT VOLUME 9.1 fl (7.5-11.1); MONO % 6.6 % (3.8-10.2); NEUT % 79.9 % (42.8-82.8); PLATELET COUNT 209 K/MM3 (134-434); RBC 2.85 M/mm3 (3.60-5.2); RDW 14.9 % (11.6-15.6); WHITE BLOOD COUNT 24.2 K/mm3 (4.0-10.0)
--- NOTE | 2019-12-30 11:10 | PN ---
Progress Note (short form) - Note Progress Note: POD #1 s/p D&C for retained placenta under GA. Doing well, no complaints, all questions answered.
--- NOTE | 2019-12-30 11:23 | OP ---
DATE OF OPERATION: 12/29/2019 PREOPERATIVE DIAGNOSIS: Retained placenta, hemorrhage. POSTOPERATIVE DIAGNOSIS: Retained placenta, hemorrhage. PROCEDURE: Dilation and curettage. ANESTHESIA: General. SURGEON: Rosa Aviles MD ALL SOURCE INTELLIGENCE: Jairo Lance MD ESTIMATED BLOOD LOSS: 100 in the OR, 600 mL blood loss prior to entry. URINE OUTPUT: Not measured. INTRAVENOUS FLUIDS: Per Anesthesia record. COMPLICATIONS: None. CONDITION: Stable to recovery room. NATURE OF THE PROCEDURE: After the appropriate consents were signed, patient was taken to the operating room. General anesthesia was administered. She was placed in dorsal lithotomy position. Surgical field was prepped and draped in normal sterile fashion. Timeout was performed confirming correct patient and procedure. Dr. Lance performed a bedside ultrasound to confirm placental location. On bimanual exam, the patient's uterus was then removed from the lower uterine segment and fundus in one single swoop. Gentle curettage was then done in all 4 quadrants to obtain gritty cry and decreased bleeding. Fundus was firm after the procedure. Minimal bleeding seen. After the procedure, the placenta was inspected. Bedside sonogram again confirmed an empty uterus. All instruments removed. Sponge count was correct x2. Patient was taken from the operating room to the recovery area in stable condition. ROSA AVILES MD MG/[id number]
[2019-12-30 12:56] LABS: ANISOCYTOSIS 2+; MACROCYTOSIS 1+; PLATELET ESTIMATE NORMAL
[2019-12-30] MEDS: DEXTROSE 5%-LACTATED RINGERS 1,000 ML IV SCH (20:21)
[2019-12-30] MEDS: OXYTOCIN 20 UNITS in 0.9% NS 20 UNIT/1,000 ML INFUS.BAG IV SCH (20:22)
[2019-12-30] MEDS: IBUPROFEN 600 MG TABLET (FP) PO PRN (21:29)
[2019-12-30] MEDS ORDERED: SENNOSIDES/DOCUSATE COMBO (SENNA PLUS) TABLET (UD) PO PRN (22:00)
[2019-12-31 09:30] VITALS: BP 128/72; PULSE 97; TEMP 98.2
--- NOTE | 2019-12-31 11:11 | DS ---
Physical Exam-CLEANING TECHNICIAN Vital Signs: Vital Signs Temperature 98.2 F 12/31/19 09:29 Pulse Rate 97 H 12/31/19 09:29 Respiratory Rate 18 12/31/19 09:29 Blood Pressure 128/72 12/31/19 09:29 O2 Sat by Pulse Oximetry (%) 97 12/29/19 16:25 Constitutional: Yes: Well Nourished, Pallor, Other (no c/o dizziness) Eyes: Yes: WNL HENT: Yes: WNL Neck: Yes: WNL Cardiovascular: Yes: WNL Respiratory: Yes: WNL Gastrointestinal: Yes: WNL Renal/: Yes: WNL ....Post : Yes: Uterus firm, Uterus non-tender, Moderate lochia rubra Breast(s): Yes: WNL (not lactating) Musculoskeletal: Yes: WNL Extremities: Yes: WNL. No: Calf Tenderness Edema: LLE: Trace, RLE: Trace Neurological: Yes: WNL, Alert, Oriented ...Motor Strength: WNL Psychiatric: Yes: WNL, Alert Labs: CBC, BMP 12/30/19 07:55 12/29/19 04:10 Laboratory Tests 12/29/19 12/29/19 04:10 04:10 Syphilis Serology Non-reactive COVID-19 (VLADIMIR) Not detected HIV Ag/Ab Combo Qual Negative Delivery - Delivery Vaginal Delivery: Spontaneous Type of Anesthesia: None Episiotomy/Laceration: None EBL (cc): 600 Delivery, Single - Stages of Labor Date 1st Stage Initiatied: 12/29/19 Time 1st Stage Initiated: 04:00 Date 2nd Stage Initiated: 12/29/19 Time 2nd Stage Initiated: 12:50 Date of Delivery: 12/29/19 Time of Delivery: 12:55 Placenta: Yes: Manual Removal, Curettage - Condition of Infant Developmental Writing Instructor/Glove Printer Present: No Infant Gender: Female Weight: 6 lb 4 oz Position: OA - 1 Minute Total Score: 9 5 Minutes Total Score: 9 - [place] Feeding Plan Initial Plan: Elected not to breastfeed exclusively throughout hospitalization Remarks - Remarks Remarks: pp anemia counselled , discharge today Discharge Summary Problems reviewed: Yes Reason For Visit: LABOR Current Active Problems AMA (advanced maternal age) multigravida 35+ (Acute) Anemia (Acute) Grand multipara in labor (Acute) Late care (Acute) Normal spontaneous vaginal delivery (Acute) with 39 completed weeks gestation (Acute) Retained placenta NOS-del w/ complication (Acute) Condition: Stable - Instructions Diet, Activity, Other Instructions: Discharge Instructions * Out of Bed * * Regular Diet, high iron , high protein diet. * Lilian Care * Avoid sex for 6 weeks * RTC 3 weeks for pp visit . If you experience excessive bleeding or fever over 101 degrees, call doctor, the clinic or go to the Emergency Room. Referrals: Christiane Pavon MD [Staff Physician] - Disposition: HOME - Home Medications Comprehensive Discharge Medication List: Ambulatory Orders Pnv 29-1 Tablet 1 tab PO DAILY 12/29/19 Acetaminophen [Tylenol .Regular Strength -] 650 mg PO Q3H PRN tablet 12/31/19 Ferrous Sulfate [Iron] 1 tab PO BID #60 tablet 12/31/19 Ibuprofen [Motrin -] 200 mg PO Q4H PRN tablet 12/31/19 26/Iron Ps/Folic/Dha [Vitafol-One Capsule] 1 each PO DAILY #30 capsule 12/31/19
[2019-12-31] MEDS: IBUPROFEN 600 MG TABLET (FP) PO PRN (11:14)
--- NOTE | 2020-01-01 12:09 | PATH ---
Surgical Pathology Report Patient Name: GINA ROSSI [facility]. Rec. #: [id number] /Age/Gender: 1985 (Age: 34) / F Account: [id number] Location: [facility] OBS/INDUSTRIAL MAINTENANCE TECH Taken: 12/29/2019 Received: 12/30/2019 Reported: 01/01/2020 Physicians: Christiane Pavon Specimen(s) Received PLACENTA Clinical History Retained placenta Final Diagnosis PLACENTA: THIRD TRIMESTER PLACENTA WITH FOCAL SUBCHORIONIC FIBRIN DEPOSITION. TRIVASCULAR CORD. MEMBRANES WITH ACUTE CHORIOAMNIONITIS. Electronically Signed Elkin Leija M.D. Gross Description The specimen is received fresh labeled placenta and is a 395 gram, 18.5 x 14.0 x 2.7 cm. placenta with attached membranes. The attached membranes are nascimento, translucent with focal opacities and insert marginally. There is no umbilical cord attached to the specimen and there is no umbilical cord identified within the container. The minimal umbilical cord stump appears to have inserted eccentrically, 5 cm to the nearest margin. The surface is meng-blue with minimal fibrin deposition and appropriate caliber vessels. The maternal surface is red-brown with focal defects. Sectioning reveals red-brown, spongy parenchyma. No lesions are identified. Medical Office Administrator sections are submitted in three cassettes as follows: 1-membrane roll; 3-8-nslz-thickness sections of placenta. /12/31/2019 [facility]12/31/2019
== END 2019-12-31 12:55 | disposition home or self-care (01) | DRG 541 ==
LOC: JDEL 02:30 → JLDR 03:15 → J3W 17:03
PROVIDERS: ADMIT Obstetrics & Gynecology; ATTEND Obstetrics & Gynecology
PROC: 10D17Z9 Manual Extraction of Products of Conception, Retained, Via Natural or Artificial Opening (ICD-10-PCS; 2019-12-29)
PROC: 10E0XZZ Delivery of Products of Conception, External Approach (ICD-10-PCS; principal; 2019-12-29 14:45)
DX: O99.02 Anemia complicating childbirth (principal); Z3A.39 39 weeks gestation of pregnancy; O72.1 Other immediate postpartum hemorrhage; Z22.330 Carrier of Group B streptococcus; Z37.0 Single live birth
CPT/HCPCS: 36415; 59409; 80048; 80307; 85025; 85610; 85730; 86780; 86850; 86900; 86901; 87389; 88307-TC; 94760; U0003